=== PATIENT | female | born 1980 | race Caucasian/White ===

== ENCOUNTER 2017-08-30 17:35 | Emergency (ER) | payer BC, MEDICAID ==
[2017-08-30 18:08] VITALS: BP 147/78; PULSE 70; RESP 18; TEMP 98.2; O2SAT 100
[2017-08-30] MEDS ORDERED: BACL10TA PO (18:24)
[2017-08-30] MEDS ORDERED: METO25TA3 PO (18:24)
[2017-08-30] MEDS ORDERED: QUET1TAB7 PO (18:24)
[2017-08-30] MEDS ORDERED: SERT25TA83 PO (18:24)
[2017-08-30] MEDS ORDERED: LEVO88TA2 PO (18:25)
[2017-08-30 18:38] VITALS: BP 124/85; PULSE 77; RESP 15; TEMP 97.8; O2SAT 99
--- NOTE | 2017-08-30 19:14 | PD ---
HPI Chief Complaint: Cardiac Complaint Time Seen by Provider: 18:48 Travel History International Travel<30 days: No Contact w/Intl Traveler<30days: No Traveled to known affect area: No History of Present Illness HPI 37y female with a history of thyroidectomy (2014), HTN, depression, asthma presents to the ED at the request of her PCP for an abnormal EKG that was found this afternoon with her PCP. She is also here because her heart palpitations have been occurring more frequently over the last 3-4 months. she describes her episodes as a sensation of her 'heart stopping and then restarting'. In addition says she has episodes of rapid heartbeat associated with shortness of breath and nausea and occasional dizziness that lasts for hours before resolving on their own. Says she occasionally feels dizzy with these episodes. She denies history of anxiety, illicit drug use. PFSH Past Medical History Anxiety: Yes Cardiovascular Problems: Yes Diminished Hearing: No Hypertension: Yes Psychiatric: Yes Thyroid Disease: Yes Tetanus Vaccination: > 5 Years Influenza Vaccination: No ?: Not LMP: 08/10/17 : 3 Para: 3 Tubal Ligation: Yes Past Surgical History Other Surgery: Yes (thyroidectomy / breast sx ) Social History Alcohol Use: Yes (rare) Tobacco Use: No Substance Use: No Allergies-Medications (Allergen,Severity, Reaction): Coded Allergies: acetaminophen (Verified Allergy, Unknown, hivrd, 08/30/17) propoxyphene (Verified Allergy, Unknown, hives, 08/30/17) Reported Meds & Prescriptions Reported Meds & Active Scripts Active Reported Levothyroxine (Levothyroxine Sodium) 88 Mcg Tab 88 Mcg PO DAILY Sertraline (Sertraline HCl) 25 Mg Tab 25 Mg PO DAILY Baclofen 10 Mg Tab 10 Mg PO HS Quetiapine (Quetiapine Fumarate) 25 Mg Tab 25 Mg PO HS Metoprolol Tartrate 25 Mg Tab 25 Mg PO DAILY Review of Systems Except as stated in HPI: all other systems reviewed are Neg Physical Exam Narrative GENERAL: WD, WN in NAD SKIN: Focused skin assessment warm/dry. Cholasma HEAD: Atraumatic. Normocephalic. EYES: Pupils equal and round. No scleral icterus. No injection or drainage. ENT: No nasal bleeding or discharge. Mucous membranes pink and moist. NECK: Trachea midline. No JVD. CARDIOVASCULAR: Regular rate and rhythm. No murmur appreciated. RESPIRATORY: No accessory muscle use. Clear to auscultation. Breath sounds equal bilaterally. GASTROINTESTINAL: Abdomen soft, non-tender, nondistended. No CVA tenderness MUSCULOSKELETAL: No obvious deformities. No clubbing. No cyanosis. No edema. NEUROLOGICAL: Awake and alert. No obvious cranial nerve deficits. Motor grossly within normal limits. Normal speech. PSYCHIATRIC: Appropriate mood and affect; insight and judgment normal. Data Data Last Documented VS Vital Signs Date Time Temp Pulse Resp B/P (MAP) Pulse Ox O2 Delivery O2 Flow Rate FiO2 08/30/17 21:13 61 14 115/80 (92) 98 08/30/17 19:30 Room Air 08/30/17 18:38 97.8 Orders Orders Electrocardiogram (08/30/17 18:11) Ckmb (Isoenzyme) Profile (08/30/17 18:11) Complete Blood Count With Diff (08/30/17 18:11) Comprehensive Metabolic Panel (08/30/17 18:11) Magnesium (Mg) (08/30/17 18:11) Prothrombin Time / Inr (Pt) (08/30/17 18:11) Act Partial Throm Time (Ptt) (08/30/17 18:11) Troponin I (08/30/17 18:11) Lipase (08/30/17 18:11) Chest, Pa & Lat (08/30/17 18:11) Thyroid Stimulating Hormone (08/30/17 18:11) Free Thyroxine (T4) (08/30/17 18:11) Ct Pulmonary Angiogram (08/30/17 ) Iohexol 350 Inj (Omnipaque 350 Inj) (08/30/17 22:20) Ed Discharge Order (08/30/17 22:33) Labs Laboratory Tests Test 08/30/17 18:05 White Blood Count 7.1 TH/MM3 Red Blood Count 4.25 MIL/MM3 Hemoglobin 12.2 GM/DL Hematocrit 37.4 % Mean Corpuscular Volume 88.0 FL Mean Corpuscular Hemoglobin 28.8 PG Mean Corpuscular Hemoglobin Concent 32.7 % Red Cell Distribution Width 15.8 % Platelet Count 310 TH/MM3 Mean Platelet Volume 8.0 FL Neutrophils (%) (Auto) 54.9 % Lymphocytes (%) (Auto) 34.9 % Monocytes (%) (Auto) 8.4 % Eosinophils (%) (Auto) 1.2 % Basophils (%) (Auto) 0.6 % Neutrophils # (Auto) 3.9 TH/MM3 Lymphocytes # (Auto) 2.5 TH/MM3 Monocytes # (Auto) 0.6 TH/MM3 Eosinophils # (Auto) 0.1 TH/MM3 Basophils # (Auto) 0.0 TH/MM3 CBC Comment DIFF FINAL Differential Comment Prothrombin Time 10.6 SEC Prothromb Time International Ratio 1.0 RATIO Activated Partial Thromboplast Time 29.3 SEC Blood Urea Nitrogen 14 MG/DL Creatinine 0.92 MG/DL Random Glucose 85 MG/DL Total Protein 7.8 GM/DL Albumin 4.1 GM/DL Calcium Level 8.2 MG/DL Magnesium Level 2.0 MG/DL Alkaline Phosphatase 78 U/L Aspartate Amino Transf (AST/SGOT) 19 U/L Alanine Aminotransferase (ALT/SGPT) 16 U/L Total Bilirubin 0.4 MG/DL Sodium Level 138 MEQ/L Potassium Level 3.7 MEQ/L Chloride Level 104 MEQ/L Carbon Dioxide Level 25.4 MEQ/L Anion Gap 9 MEQ/L Estimat Glomerular Filtration Rate 69 ML/MIN Total Creatine Kinase 91 U/L Troponin I LESS THAN 0.02 NG/ML Lipase 267 U/L Free Thyroxine 0.91 NG/DL Thyroid Stimulating Hormone 3rd Gen 13.300 uIU/ML MDM Medical Decision Making Medical Screen Exam Complete: Yes Emergency Medical Condition: Yes Differential Diagnosis Heart palpitations, anxiety, panic attack, angina Narrative Course 37-year-old female presents to the emergency department for evaluation of heart palpitations after she was seen in her primary care physician office today. According to patient, she was sent here at the request of her primary care physician after an abnormal EKG. Patient says her episodes of heart palpitations have been occurring over the last 3-4 months associated with shortness of shortness of breath, nausea and occasional dizziness. She presents today also because they become more frequent. Medical history significant for hypothyroidism status post thyroidectomy 3 years ago, hypertension, depression, insomnia. She denies any episodes of anxiety. Vital signs stable. CBC & BMP Diagram 08/30/17 18:05 Total Protein 7.8, Albumin 4.1, Calcium Level 8.2 L, Magnesium Level 2.0, Alkaline Phosphatase 78, Aspartate Amino Transf (AST/SGOT) 19, Alanine Aminotransferase (ALT/SGPT) 16, Total Bilirubin 0.4 TSH 13.3, T4 0.91 on levothyroxine. negative cardiac enzymes. EKG shows sinus rhythm with T wave inversion of Lead III and flattening of lead II. I spoke with Dr. Hassan, my attending who reviewed the EKG. He suggested a CT pulmonary angiogram as she has had SOB. Last Impressions Chest X-Ray 08/30/17 1811 Signed Impressions: Service Date/Time: Wednesday, August 30, 2017 19:03 - CONCLUSION: Previous left lung surgery with basilar scarring. No acute cardiopulmonary disease demonstrated. Rod Valadez MD CT Angiography 08/30/17 0000 Signed Impressions: Service Date/Time: Wednesday, August 30, 2017 22:04 - CONCLUSION: No pulmonary embolus or other acute abnormality. Rod Valadez MD After discussion with the patient, it appears she does not have a history of lung surgery. There is not evidence of the surgical clips mentioned in the CT chest. Consider artifact from the hospital gown contributing to the imaging study today. Pt should follow up with her PCP and civil preparedness officer for further evaluation. Diagnosis Primary Impression: Heart palpitations Referrals: [facility] Primary Care Physician Additional Instructions: Follow-up with civil preparedness officer as discussed. He may require additional tests that we do not perform in the emergency department. Follow-up with primary care physician. Your cardiac enzymes and EKG was normal today. You will receive a copy of your results and labs today. Disposition: 01 DISCHARGE HOME Condition: Stable Jyoti Che Aug 30, 2017 19:14
--- NOTE | 2017-08-30 19:18 | RADRPT ---
EXAM DATE/TIME: 08/30/2017 19:03 [facility] COMPARISON: No previous studies available for comparison. INDICATIONS : Chest discomfort and cough. MEDICAL HISTORY : Hypertension. SURGICAL HISTORY : Cervical fusion. ENCOUNTER: Initial ACUITY: 3 days PAIN SCORE: 5/10 LOCATION: Bilateral chest FINDINGS: No infiltrate, effusion or pneumothorax seen. Patient has surgical clips anteriorly in the left mid l faith. There is associated mild scarring. Heart size within normal limits. CONCLUSION: Previous left lung surgery with basilar scarring. No acute cardiopulmonary disease demonstrated. Rod Valadez MD on August 30, 2017 at 19:15 Board Certified Radiologist. This report was verified electronically.
[2017-08-30 19:21] LABS: ALBUMIN 4.1 GM/DL (3.4-5.0); ALT (GPT) 16 U/L (10-53); AST (GOT) 19 U/L (15-37); BICARBONATE 25.4 MEQ/L (21.0-32.0); BLOOD UREA NITROGEN 14 MG/DL (7-18); CALCIUM 8.2 MG/DL (8.5-10.1); CHLORIDE 104 MEQ/L (98-107); CREATININE 0.92 MG/DL (0.50-1.00); GLOMERULAR FILTRATION RATE 69 ML/MIN (>89); GLUCOSE,RANDOM 85 MG/DL (74-106); SODIUM (NA) 138 MEQ/L (136-145)
[2017-08-30 19:26] LABS: PROTHROMBIN TIME - PATIENT 10.6 SEC (9.8-11.6)
[2017-08-30 19:30] LABS: ALKALINE PHOSPHATASE 78 U/L (45-117); FREE T4 0.91 NG/DL (0.76-1.46); TOTAL BILIRUBIN ADULT 0.4 MG/DL (0.2-1.0); TOTAL PROTEIN 7.8 GM/DL (6.4-8.2); TROPONIN I LESS THAN 0.02 NG/ML (0.02-0.05)
[2017-08-30 20:11] LABS: AUTOMATED NEUTROPHIL # 3.9 TH/MM3 (1.8-7.7); BASOPHIL % 0.6 % (0.0-2.0); EOSINOPHIL # 0.1 TH/MM3 (0-0.4); EOSINOPHIL % 1.2 % (0.0-4.0); HEMATOCRIT 37.4 % (35.0-46.0); HEMOGLOBIN 12.2 GM/DL (11.6-15.3); LYMPH % 34.9 % (9.0-44.0); LYMPHOCYTE # 2.5 TH/MM3 (1.0-4.8); MEAN CORPUSCULAR HEMOGLOBIN 28.8 PG (27.0-34.0); MEAN CORPUSCULAR HGB CONC 32.7 % (32.0-36.0); MONO % 8.4 % (0.0-8.0); MONOCYTE # 0.6 TH/MM3 (0-0.9); NEUT % 54.9 % (16.0-70.0); PLATELET COUNT 310 TH/MM3 (150-450); RED BLOOD COUNT 4.25 MIL/MM3 (4.00-5.30); RED CELL DISTRIBUTION WIDTH 15.8 % (11.6-17.2); WHITE BLOOD COUNT 7.1 TH/MM3 (4.0-11.0)
[2017-08-30 21:13] VITALS: BP 115/80; PULSE 61; RESP 14; O2SAT 98
[2017-08-30] MEDS ORDERED: IOHEXOL 350 MG/ML 10 ML VIAL (for RAD DIAG) IVCONTRAST ONE (22:20)
--- NOTE | 2017-08-30 22:28 | RADRPT ---
EXAM DATE/TIME: 08/30/2017 22:04 [facility] COMPARISON: CHEST PA & LAT, August 30, 2017, 19:03. INDICATIONS : Shortness of breath. Chest pain. IV CONTRAST: 75 cc Omnipaque 350 (iohexol) IV RADIATION DOSE: 7.91 CTDIvol (mGy) MEDICAL HISTORY : Hypertension. SURGICAL HISTORY : Tubal ligation. ENCOUNTER: Initial ACUITY: 1 week PAIN SCALE: 4/10 LOCATION: chest TECHNIQUE: Volumetric scanning of the chest was performed using a pulmonary embolism protocol MIP images were re constructed. Using automated exposure control and adjustment of the mA and/or kV according to patien t size, radiation dose was kept as low as reasonably achievable to obtain optimal diagnostic quality images. DICOM format image data is available electronically for review and comparison. Follow-up recommendations for detected pulmonary nodules are based at a minimum on nodule size and pa tient risk factors according to Fleischner Society Guidelines. FINDINGS: PULMONARY ARTERIES: No filling defects are seen in the pulmonary arteries through the segmental level. LUNGS: There is no consolidation or pneumothorax . No concerning pulmonary nodule is visualized. PLEURAE: There is no pleural thickening or pleural effusion. MEDIASTINUM: There is good visualization of the great vessels of the middle mediastinum. No evidence of mediastin al or hilar adenopathy/mass. MUSCULOSKELETAL: Within normal limits for patient age. MISCELLANEOUS: The visualized upper abdominal organs demonstrate no acute abnormality. There are surgical changes of the left breast but not the lung. CONCLUSION: No pulmonary embolus or other acute abnormality. Rod Valadez MD on August 30, 2017 at 22:25 Board Certified Radiologist. This report was verified electronically.
--- NOTE | 2017-08-31 23:35 | EKG ---
Date Performed: 08/30/2017 Time Performed: 20:09:29 PTAGE: 37 years EKG: Sinus rhythm NONSPECIFIC T-WAVE ABNORMALITY ABNORMAL ECG NO PREVIOUS TRACING DOCTOR: Bubba De Leon Interpretating Date/Time 08/31/2017 23:32:21
== END 2017-08-30 23:19 | disposition home or self-care (01) ==
LOC: NEPC 17:35
DX: R00.2 Palpitations (principal); E89.0 Postprocedural hypothyroidism; I10 Essential (primary) hypertension; R06.02 Shortness of breath
CPT/HCPCS: 71046; 71275; 80053; 82550; 83690; 83735; 84439; 84443; 84484; 85025; 85610; 85730; 93005; 99285; Q9967

== ENCOUNTER 2017-10-01 07:37 | Emergency (ER) | payer OTHER, BC, MEDICAID ==
[~2017-10-01] VITALS: Ht 162.6 cm; Wt 53.0 kg
[~2017-10-01 07:37] MED LIST: BACL10TA PO; LEVO88TA2 PO; METO25TA3 PO; QUET1TAB7 PO; SERT25TA83 PO
[2017-10-01 07:38] VITALS: BP 130/74; PULSE 97; RESP 16; TEMP 98.1; O2SAT 100
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
[2017-10-01] MEDS ORDERED: TYLETAB34 PO (09:59)
[2017-10-01] MEDS ORDERED: BACL10TA PO (09:59)
[2017-10-01 10:13] VITALS: BP 116/85; PULSE 82; RESP 18; O2SAT 99
== END 2017-10-01 10:17 | disposition home or self-care (01) ==
LOC: NEPD 07:37
DX: S16.1XXA Strain of muscle, fascia and tendon at neck level, initial encounter (principal); S39.012A Strain of muscle, fascia and tendon of lower back, initial encounter; M25.551 Pain in right hip; I10 Essential (primary) hypertension; V49.40XA Driver injured in collision with unspecified motor vehicles in traffic accident, initial encounter; Y92.410 Unspecified street and highway as the place of occurrence of the external cause
CPT/HCPCS: 72100; 72125; 73502; 99284